=== PATIENT | female | born 1990 | race Caucasian/White ===

== ENCOUNTER 2019-08-09 10:33 | Inpatient (IN) | payer OTHER ==
[~2019-08-09] VITALS: Ht 167.6 cm; Wt 51.3 kg
[2019-08-09 10:40] VITALS: BP 127/79
[2019-08-09 10:46] LABS: ABSOLUTE NEUTROPHILS 3.7 thou/uL (1.4-8.2); BASOPHILS 0.6 % (0.0-2.0); EOSINOPHILS 0.9 % (0.0-3.0); HEMATOCRIT 37.1 % (37.0-47.0); HEMOGLOBIN 12.4 gm/dL (12.0-15.0); LYMPHOCYTES 33.3 % (24.0-44.0); MCH 28.3 pg (26.0-34.0); MCHC 33.6 g/dL (28.0-37.0); MCV 84.2 fL (80.0-100.0); MONOCYTES 7.6 % (1.0-8.0); PLATELET COUNT 315 thou/uL (150-400); POLYS 57.6 % (36.0-66.0); RDW 14.1 % (10.5-14.5); WBC 6.5 thou/uL (4.0-11.0)
[2019-08-09 10:56] LABS: ANION GAP 10 mmol/L (7-16); BUN 13 mg/dL (7-18); CALCIUM 9.4 mg/dL (8.5-10.1); CHLORIDE 101 mmol/L (98-107); CO2 26 mmol/L (21-32); CREATININE 0.5 mg/dL (0.6-1.0); GLUCOSE 96 mg/dL (74-106); POTASSIUM 3.7 mmol/L (3.5-5.1); SODIUM 137 mmol/L (136-145)
[2019-08-09] MEDS ORDERED: AMITRIPTYLINE H50 M2 PO (10:56)
[2019-08-09 11:03] LABS: URINE BILIRUBIN NEGATIVE (Negative); URINE BLOOD NEGATIVE (Negative); URINE CLARITY CLEAR; URINE COLOR YELLOW; URINE GLUCOSE-RANDOM* NEGATIVE (Negative); URINE KETONES NEGATIVE (Negative); URINE LEUKOCYTES-REFLEX NEGATIVE (Negative); URINE NITRITE-REFLEX NEGATIVE (Negative); URINE PROTEIN (DIPSTICK) NEGATIVE (Negative); URINE SPECIFIC GRAVITY >= 1.030 (1.005-1.035); URINE UROBILINOGEN 0.2 E.U./dl (0.2-1.0)
[2019-08-09 11:05] LABS: TROPONIN-I <0.06 ng/mL (<0.06)
[2019-08-09 11:10] LABS: AMP/METHAMP Negative (Negative); BARBITURATES Negative (Negative); BENZODIAZEPINES Negative (Negative); COCAINE Negative (Negative); METHADONE Negative (Negative); OPIATES Negative (Negative); PCP Negative (Negative)
[2019-08-09 13:06] VITALS: BP 113/66
[2019-08-09 13:45] VITALS: BP 138/65
[2019-08-09 14:15] VITALS: BP 117/65
--- NOTE | 2019-08-09 14:24 | NUR ---
ARRIVED TO FLOOR VIA CART AWAKE, ALERT AND ORIENTED X 4. PLAYGROUND WORKER STARTING EEG. WILL DO ADMISSION AFTER EEG DONE. FALL PRECAUTIONS IN PLACE. AT BEDSIDE.
--- NOTE | 2019-08-09 15:44 | EKG ---
[address] [place] [employer] [place] [address] ELECTROCARDIOGRAM REPORT Name: NIESHA REDMOND Room #: 349-I ADM IN M.R.#: [id number] Admission: 08/09/19 Attend Phys: Ciro France MD Discharge: Date of : 86 Report #: [id number] THIS REPORT FOR: //name// [facility] ED Test Date: 2019-08-09 Test Time: 11:06:01 Pat Name: NIESHA REDMOND Department: Room: 349 Gender: F Small Order Cutter: HEIDY : 1990 Requested By: Josh Terry Order Number: [id number] MD: Dipak Page Measurements Intervals [place] Rate: 78 P: -23 OK: 80 QRS: 82 QRSD: 90 T: 66 QT: 389 QTc: 444 Interpretive Statements Sinus rhythm Short OK interval Right ventricular conduction delay No previous ECG available for comparison Electronically Signed On 08-09-2019 15:44:42 TERRAZZO JOURNEYMAN by Dipak Page [email or web address] <ELECTRONICALLY SIGNED> By: Dipak Page MD, [facility] 08/09/19 1544 1106 1106 Dipak Page MD, FACC /EPI
[2019-08-09 16:14] VITALS: BP 122/72
[2019-08-09] MEDS ORDERED: TIZANIDINE HCL2 M1 PO (16:26)
[2019-08-09 20:20] VITALS: BP 115/53
[2019-08-10 04:19] LABS: CALCIUM 8.4 mg/dL (8.5-10.1); CREATININE 0.4 mg/dL (0.6-1.0); MAGNESIUM 1.7 mg/dL (1.8-2.4); POTASSIUM 3.4 mmol/L (3.5-5.1)
[2019-08-10 04:24] LABS: ABSOLUTE NEUTROPHILS 3.8 thou/uL (1.4-8.2); BASOPHILS 0.6 % (0.0-2.0); EOSINOPHILS 0.7 % (0.0-3.0); HEMATOCRIT 31.2 % (37.0-47.0); HEMOGLOBIN 10.5 gm/dL (12.0-15.0); LYMPHOCYTES 34.9 % (24.0-44.0); MCH 28.3 pg (26.0-34.0); MCHC 33.6 g/dL (28.0-37.0); MCV 84.4 fL (80.0-100.0); MONOCYTES 6.7 % (1.0-8.0); PLATELET COUNT 267 thou/uL (150-400); POLYS 57.1 % (36.0-66.0); RDW 13.8 % (10.5-14.5); WBC 6.7 thou/uL (4.0-11.0)
[2019-08-10 05:41] VITALS: BP 103/44
--- NOTE | 2019-08-10 06:07 | NUR ---
ASSUMED CARE FROM DAY SHIFT PT C/O NAUSEA AFTER ZOFRAN GIVEN , CALLED [employer] ADMINISTRATOR AND RECIEVED ORDER FOR COMPAZINE , MEDICATION GIVEN AND ABLE TO TAKE HS PO MEDICATION. NO SEIZURE ACTIVITY NOTED THROUGHOUT HOURLY ROUNDS SLEPT IN BED WITH PT . HEALTHCARE LIAISON SHOWS NSR/SB . RESTED WELL THROUGHOUT HOURLY ROUNDS.
[2019-08-10 07:56] VITALS: BP 103/52
--- NOTE | 2019-08-10 11:12 | NUR ---
CONSULT [id number] COMPLETED BY THIS SHIRT FINISHER. THIS CHAP[BECKY FOUND PATIENT'S , DAUGHTER AND SON IN THE RO0M WITH HER. PATIENT WAS VERY RELAXED AND CORDIAL. SHE SAID SHE WAS WAITING FOR HER MRI. tHE CHILDREN ARE BOTH UNDER 6 AND VERY FULL OF LIFE. THE ENTIRE FAMILY WAS WARM AND CORDIAL. WE CONCLUDED IN PRAYER.
[2019-08-10 12:04] VITALS: BP 110/59
[2019-08-10 13:30] LABS: % SATURATION 38 % (20-39); IRON 119 ug/dL (50-170); TIBC 314 ug/dL (250-450)
[2019-08-10 13:57] LABS: TSH 2.485 uIU/mL (0.358-3.740)
[2019-08-10 14:40] LABS: FOLIC ACID 40.2 ng/mL (8.6-58.9)
[2019-08-10 16:18] VITALS: BP 110/59
[2019-08-10 16:20] VITALS: BP 110/59
[2019-08-10 16:39] VITALS: BP 110/59
--- NOTE | 2019-08-10 16:39 | NUR ---
Assumed care approx. 0700 this AM. Verbal orders for fluids to be dc'd this AM. MRI negative. Patient seen by Dr. Guerra...okay from neuro to dc patient. DC orders recieved from Dr. France. No new scripts for meds ordered. IV and tele dc'd. Discharge packet went over with patient. All belongings with patient. Patient left by wheelchair at 1635 with deputy united states marshal to exit with patients father.
--- NOTE | 2019-08-23 13:30 | EEG ---
[facility] [place] [address] ELECTROENCEPHALOGRAM Name: NIESHA REDMOND Room #: 349-I [facility] IN M.R.#: [id number] Admission: 08/09/19 Attend Phys: Ciro France MD Discharge: 08/10/19 Date of : 86 Report #: [id number] THIS REPORT FOR: //name// CC: Felecia France DATE OF SERVICE: 08/09/2019 This patient is being evaluated for the possibility of seizure. EEG was done by placing the electrode by standard 10-20 system of electrode placement. Both referential and sequential montages were used for recording. Background activity in this patient's EEG is about 11 Hz and 30 microvolt. This is a well-formed background activity -- patient went to sleep, that is associated with bilaterally symmetrical sleep spindle and vertex sharp waves. Throughout the record, no active epileptiform activity was noticed. IMPRESSION: This patient's EEG is within normal limit. Thank you very much for this referral. <ELECTRONICALLY SIGNED> By: Bill Anne MD 08/23/19 1330 1614 1816 Bill Anne MD /nt
== END 2019-08-10 16:35 | disposition home or self-care (01) | DRG 101 ==
LOC: EDBD 10:33 → ER 10:33 → EROBS 12:26 → 3W 12:26
PROVIDERS: Emergency Medicine; Nurse Practitioner; Psychiatry & Neurology Neurology; ADMIT Hospitalist
DX: G40.901 Epilepsy, unspecified, not intractable, with status epilepticus (principal); D64.9 Anemia, unspecified; Z88.8 Allergy status to other drugs, medicaments and biological substances; Z87.442 Personal history of urinary calculi; Z86.711 Personal history of pulmonary embolism; Z79.899 Other long term (current) drug therapy
CPT/HCPCS: 10879

== ENCOUNTER → 2019-09-12 | Outpatient (CLI) | payer OTHER ==
[~2019-09-12] MED LIST: AMITRIPTYLINE H50 M2 PO; TIZANIDINE HCL2 M1 PO
--- NOTE | 2019-09-13 13:44 | EEG ---
[facility] [place] [address] ELECTROENCEPHALOGRAM Name: NIESHA REDMOND Room #: [facility].#: [id number] Admission: 09/12/19 Attend Phys: Brain Enriquez MD Discharge: Date of : 86 Report #: [id number] THIS REPORT FOR: //name// CC: Brain Enriquez DATE OF SERVICE: 09/12/2019 This patient is being evaluated for the possibility of seizure. EEG was done by placing the electrode by standard 10-20 system of electrode placement. Both referential and sequential montages were used for recording. Background activity in this patient's EEG is about 11 Hz and 40 microvolt. There is a symmetrical activity. Photic stimulation is unremarkable. The patient became drowsy and that was associated with bilateral slowing and vertex sharp waves. Throughout the record, no active epileptiform activity was noticed. IMPRESSION: This patient's EEG is within normal limit. Thank you very much for this referral. <ELECTRONICALLY SIGNED> By: Bill Anne MD 09/13/19 1344 1039 1053 Bill Anne MD /nt
== END ==
LOC: NEURO 08:31
DX: G43.009 Migraine without aura, not intractable, without status migrainosus (principal); R40.4 Transient alteration of awareness

== ENCOUNTER → 2019-09-16 | Outpatient (CLI) | payer OTHER ==
--- NOTE | 2019-09-16 16:04 | 2DMMODE ---
[facility] [address] [place] [address] 2 D/M-MODE ECHOCARDIOGRAM Name: NYLANIESHA Room #: [facility]#: [id number] Admission: 09/16/19 Attend Phys: Adrian Guerra, Discharge: Date of : 86 Report #: [id number] THIS REPORT FOR: //name// APPROVED REPORT Study performed: 09/16/2019 14:39:56 EXAM: Comprehensive 2D, Doppler, and color-flow Echocardiogram Patient Location: Echo lab Status: routine BSA: 1.60 HR: 86 bpm BP: 98/62 mmHg Rhythm: NSR Other Information Study Quality: Technically Difficult Technically limited study due to thin body habitus. Indications Atypical migraine Echo Enhancing Agent Indication: Rule out Shunt Agent(s) / Amount(s) Used: Agitated Saline 6 cc 2D Dimensions RVDd: 32.85 mm IVSd: 5.91 (7-11mm) LVOT Diam: 18.72 (18-24mm) LVDd: 43.46 mm PWd: 5.18 (7-11mm) Ascending Ao: 20.44 (22-36mm) LVDs: 28.16 (25-40mm) Aortic Root: 23.62 mm IVC: 13.00 mm Volumes Left Atrial Volume (Systole) Single Plane 4CH: 28.28 mL Single Plane 2CH: 13.04 mL LA ESV Index: 14.00 mL/m2 Aortic Valve AoV Peak Ricky.: 1.28 m/s AO Peak Gr.: 6.55 mmHg LVOT Max P.12 mmHg LVOT Max V: 1.13 m/s [facility] [address] [place] [address] 2 D/M-MODE ECHOCARDIOGRAM Name: NIESHA REDMOND Wally Room #: [facility]#: [id number] Admission: 09/16/19 Attend Phys: Adrian Guerra, Discharge: Date of : 86 Report #: [id number] RAVINDER Vmax: 2.43 cm2 Mitral Valve E/A Ratio: 1.3 MV Decel. Time: 270.68 ms MV E Max Ricky.: 0.78 m/s MV A Ricky.: 0.59 m/s MV PHT: 78.50 ms IVRT: 69.20 ms Pulmonary Valve PV Peak Ricky.: 0.92 m/s PV Peak Gr.: 3.41 mmHg Pulmonary Vein P Vein S: 0.79 m/s P Vein A: 0.32 m/s P Vein D: 0.60 m/s P Vein A Dur.: 115.3 msec P Vein S/D Ratio: 1.32 Tricuspid Valve RAP Estimate: 5.00 mmHg Left Ventricle The left ventricle is normal size. There is normal left ventricular wall thickness. The left ventricular systolic function is normal. The left ventricular ejection fraction is within the normal range. LVEF is 60-65%. The left ventricular diastolic function is normal. Right Ventricle The right ventricle is normal size. The right ventricular systolic function is normal. Atria The left atrium size is normal. Positive injection of bubbles into left arm after 6-7 cardiac cycles, possible intrapulmonary shunt. The right atrium size is normal. Aortic Valve The aortic valve is normal in structure. No aortic regurgitation is present. There is no aortic valvular stenosis. Mitral Valve The mitral valve is normal in structure. There is no mitral valve regurgitation noted. No evidence of mitral valve stenosis. Tricuspid Valve The tricuspid valve is normal in structure. Trace tricuspid [facility] [address] [place] [address] 2 D/M-MODE ECHOCARDIOGRAM Name: NIESHA REDMOND Room #: [facility]#: [id number] Admission: 09/16/19 Attend Phys: Adrian Guerra, Discharge: Date of : 86 Report #: [id number] regurgitation. Unable to assess PA pressure. Pulmonic Valve The pulmonary valve is normal in structure. Mild pulmonic regurgitation. Great Vessels The aortic root is normal in size. IVC is normal in size and collapses >50% with inspiration. Pericardium There is no pericardial effusion. <Conclusion> The left ventricle is normal size. LVEF is 60-65%. The aortic valve is normal in structure. The mitral valve is normal in structure. The tricuspid valve is normal in structure. Trace tricuspid regurgitation. Unable to assess PA pressure. The pulmonary valve is normal in structure. Mild pulmonic regurgitation. There is no pericardial effusion. Positive injection of bubbles into left arm after 6-7 cardiac cycles, possible intrapulmonary shunt. <ELECTRONICALLY SIGNED> By: Mauro Gilmore MD 09/16/19 1604 1604 1604 Mauro Gilmore MD /INF
== END ==
LOC: CV 14:31
DX: I37.1 Nonrheumatic pulmonary valve insufficiency (principal); G43.009 Migraine without aura, not intractable, without status migrainosus

== ENCOUNTER → 2020-06-02 | Outpatient (CLI) | payer OTHER ==
[2020-06-02 10:36] LABS: ABSOLUTE NEUTROPHILS 2.9 thou/uL (1.4-8.2); BASOPHILS 0.6 % (0.0-2.0); EOSINOPHILS 1.1 % (0.0-3.0); HEMATOCRIT 36.1 % (37.0-47.0); LYMPHOCYTES 30.7 % (24.0-44.0); MCH 27.8 pg (26.0-34.0); MCHC 33.2 g/dL (28.0-37.0); MCV 83.9 fL (80.0-100.0); MONOCYTES 8.5 % (1.0-8.0); PLATELET COUNT 244 thou/uL (150-400); POLYS 59.1 % (36.0-66.0); RBC 4.31 mil/uL (4.20-5.00); WBC 4.8 thou/uL (4.0-11.0)
[2020-06-02 11:09] LABS: ANION GAP 9 mmol/L (7-16); BUN 7 mg/dL (7-18); CALCIUM 8.8 mg/dL (8.5-10.1); CHLORIDE 103 mmol/L (98-107); CHOLESTEROL 174 mg/dL (<200); CO2 28 mmol/L (21-32); CREATININE 0.5 mg/dL (0.6-1.0); GLUCOSE 91 mg/dL (74-106); HDL CHOLESTEROL 84 mg/dL (>40); LDL CHOLESTEROL 79 mg/dL (<100); POTASSIUM 4.2 mmol/L (3.5-5.1); SGOT 17 U/L (15-37); SGPT 17 U/L (30-65); SODIUM 140 mmol/L (136-145); TC:HDL 2.1 Ratio (Not establshd); TOTAL BILIRUBIN 0.3 mg/dL (0.2-1.0); TOTAL PROTEIN 7.4 g/dL (6.4-8.2); TRIGLYCERIDE 58 mg/dL (<150); VLDL 12 mg/dL (<40)
== END ==
LOC: LABMALL 09:57
PROVIDERS: ATTEND Nurse Practitioner
DX: Z00.00 Encounter for general adult medical examination without abnormal findings (principal)